=== PATIENT | male | born 2000 | race Two or more races ===

== ENCOUNTER 2022-01-14 10:32 | Emergency (ER) | payer MEDICAID ==
[~2022-01-14] VITALS: Ht 182.9 cm; Wt 111.1 kg
[2022-01-14 10:44] VITALS: BP 133/88
--- NOTE | 2022-01-14 10:44 | NUR ---
BIBFAMILY C/O LEFT ANKLE SWELLING X2DAYS S/P LANDED ON IT WHILE PLAYING BASKETBALL.
[2022-01-14] MEDS ORDERED: NAPR-1192 PO (11:40)
--- NOTE | 2022-01-14 11:56 | NUR ---
Patient discharged to home in stable condition. Written and verbal after care instructions given. Patient verbalizes understanding of instruction.
== END 2022-01-14 11:58 | disposition home or self-care (01) ==
LOC: ER 10:34
DX: S93.402A Sprain of unspecified ligament of left ankle, initial encounter (principal); X50.1XXA Overexertion from prolonged static or awkward postures, initial encounter; Y93.67 Activity, basketball; Y92.310 Basketball court as the place of occurrence of the external cause; Y99.8 Other external cause status
CPT/HCPCS: 73610-TC